=== PATIENT | female | born 1940 | race Caucasian/White ===

== ENCOUNTER → 2023-06-10 11:03 | Outpatient (REF) | payer MEDICARE, OTHER, SELFPAY | LOC: RAD 11:03 | PROVIDERS: ATTENDING PHYSICIAN Family Medicine | DX: M79.604 Pain in right leg (principal); M79.605 Pain in left leg | CPT/HCPCS: 72110; 73523 ==

== ENCOUNTER → 2025-01-18 14:08 | Outpatient (REF) | payer MEDICARE, OTHER, SELFPAY | LOC: CLAB 14:08 | PROVIDERS: ATTENDING PHYSICIAN Specialist | DX: N39.0 Urinary tract infection, site not specified (principal) | CPT/HCPCS: 87086 ==

== ENCOUNTER 2025-02-14 07:21 | Inpatient (IN) | payer MEDICARE, OTHER, SELFPAY ==
--- NOTE | 2025-01-21 13:10 | CM ---
Addendum entered by Joanna Penn RN 01/21/25 13:30:
Mercedes, consulting project director
[phone]
Original Note:
CM spoke with patient who was confused regarding discharge plan. Patient requested that CM call patient 's son Jose. Jose stated that they have made arrangements for respite at [facility] with [facility]. CM advised patient's son
that patient may not be eligible for Personal Care Post operatively and emphasized that physical therapy and occupational therapy will need to clear patient for that level of care. Patient's son stated that Dr. Tanner advised him that patient would
be appropriate for personal care and she would only need two week post operatively.
ERINN spoke with RYANNE Rome at [facility] who advised that patient would have to be recommended post operatively for personal care. If patient was recommended for SNF, then patient would not be accepted to [facility].
ERINN spoke with Mercedes, consulting project director. Mercedes advised this CM that she has primarily been speaking with patient's daughter in a law Dawna to make arrangements for respite. Mercedes advised family that patient may need post Acute care prior to
coming to respite. Mercedes will speak with patient's family to clarify plan.
[2025-01-31 11:38] LABS: Hematocrit 44.0 % (37.0-47.0); Hemoglobin 13.6 g/dL (12.0-16.0); Mean Corp Hgb Conc. 30.9 g/dL (33.0-37.0); Mean Corpuscular Volume 89.8 fL (81.0-99.0); Platelet Count 304 10^3/uL (130-400); Red Cell Dist. Width 15.5 % (11.5-14.5)
[2025-01-31 12:03] LABS: ALT (SGPT) 12 U/L (0-35); AST (SGOT) 21 U/L (14-36); Albumin 4.2 g/dl (3.5-5.0); Alkaline Phosphatase 77 U/L (38-126); Blood Urea Nitrogen 19 mg/dl (7-17); Calcium 9.4 mg/dl (8.4-10.2); Carbon Dioxide 32 mmol/L (22-30); Chloride 101 mmol/L (98-107); Glucose 97 mg/dl (70-99); Potassium 4.2 mmol/L (3.5-5.1); Sodium 138 mmol/L (135-145); Total Protein 6.8 g/dl (6.3-8.2); eGFR > 60.00
[2025-01-31 12:38] LABS: Glycohemoglobin (HgbA1c) 5.9 % (4.0-5.9)
[2025-01-31 14:06] VITALS: BMI 29.2
--- NOTE | 2025-01-31 16:09 | W.PN.UPDATE ---
Update Note
Progress Note Update
White count mildly elevated 11.9-no symptoms-spoke to son-if fever or sx develop, he will contact me.
[2025-02-08 12:14] VITALS: BMI 29.2
--- NOTE | 2025-02-11 10:31 | CM ---
communications project manager reviewed patient's chart and patient is for Right total hip Arthroplasty on 02/14/25, cyanide case hardener reached out to patient's son today to review plan and check to see if paperwork has been completed for [facility], per
patient's son, Jose DME form has been completed and provided to admissions at [facility], patient will also be set up with [facility], back up plan is skilled placement at [facility].
Plan; [facility].
[2025-02-14] VITALS (24 sets, daily range): BP systolic 99–168; BP diastolic 48–96; PULSE 67; O2SAT 97; BMI 29.2
[2025-02-14] MEDS: CELEBREX 200 MG PO (07:27)
[2025-02-14] MEDS: TYLENOL 650 MG PO ×3 (07:29→16:46)
[2025-02-14] MEDS: NORMOSOL-R/PLASMALYTE-A 1000 IV ×2 (07:36→14:57)
--- NOTE | 2025-02-14 08:48 | W.PN.ORTHO ---
Today's Communication / Plan
-
d/c when stable
Assessment
.
Assessment:
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
-Ibuprofen 400mg bid, Gabapentin, Decadron-Tramadol prn
Plan
.
Surgery / Date: R LANDY Dr Tanner 02/14/25
DVT Prophylaxis: Aspirin
Activity:
Out of bed.
PT/OT
Discharge Plan: Rehab ([facility])
Vital Signs and Labs
.
Vital Signs and Labs:
Lab Results
01/31/25 11:17
01/31/25 11:18
Temp Pulse Resp BP Pulse Ox
99.0 F 75 18 134/65 96
02/14/25 07:06 02/14/25 07:06 02/14/25 07:06 02/14/25 07:06 02/14/25 07:06
--- NOTE | 2025-02-14 09:03 | W.DS.TRANS ---
DC Summary - Train Starter
-
Discharge Instructions:
Sleep Apnea Risk Low
Discharge Diagnosis/Procedures R LANDY Dr Tanner 02/14/25
Diet As tolerated
Activity With Walker,With assistance
Additional Activity FALL PRECAUTIONS
Driving Restrictions No driving
Bathing Restrictions OK to Shower
Other Services PT,VN,OT
Instructions:
Stand-Alone Forms: Total Hip/Knee Replacement D/C
Changes to Home Medications: Yes
Discharge Medications:
DC Medications w/original date entered in [place]
famotidine 20 mg tablet 20 mg PO HS Gastrointestinal issue 11/08/08
metoprolol succinate 50 mg tablet,extended release 24 hr 50 mg PO QPM Blood pressure 11/08/08
amlodipine 5 mg tablet 5 mg PO DAILY Blood pressure 11/28/20
levothyroxine 50 mcg tablet 50 mcg PO BID Thyroid 11/28/20
alendronate 70 mg tablet (Fosamax) 70 mg PO QWEEK 01/26/25
fluticasone propionate 100 mcg/actuation blister powder for inhalation 1 inh inhalation BID 01/26/25
multivitamin 1 tab PO DAILY 01/26/25
Held on 02/14/25. Instructions: Resume on 02/22/25.
mupirocin 2 % topical ointment 1 applic topical BID infection prevention #1 tube 01/28/25
dexamethasone 4 mg tablet 4 mg PO BID inflammation #6 tabs 01/31/25
gabapentin 300 mg capsule 300 mg PO HS sleep/pain #10 caps 01/31/25
ondansetron 4 mg disintegrating tablet 4 mg PO Q6H PRN n/v #20 tabs 01/31/25
tramadol 50 mg tablet 50 mg PO Q6H PRN 1 tab moderate pain, 2 if severe #30 tabs 01/31/25
acetaminophen 650 mg tablet,extended release 1,300 mg (2 x 650 mg) PO TID Pain #0 tabs 02/14/25
aspirin 325 mg tablet 325 mg PO DAILY Blood clot prevention/tx #0 tabs 02/14/25
docusate sodium 100 mg capsule (Colace) 100 mg PO BID stool softner #1 cap 02/14/25
ibuprofen 200 mg tablet 400 mg (2 x 200 mg) PO BID Anti-inflammatory #0 tabs 02/14/25
magnesium hydroxide 400 mg/5 mL oral suspension (Milk of Magnesia) 30 ml PO HS PRN constipation #1 mL 02/14/25
sennosides 8.6 mg tablet (Senokot) 17.2 mg (2 x 8.6 mg) PO BID laxative #2 tabs 02/14/25
valsartan 80 mg tablet 160 mg (2 x 80 mg) PO DAILY Blood pressure #0 tabs 02/14/25
Home Medication Changes
mupirocin 2 % topical ointment 1 applic topical BID infection prevention #1 tube 01/28/25
dexamethasone 4 mg tablet 4 mg PO BID inflammation #6 tabs 01/31/25
gabapentin 300 mg capsule 300 mg PO HS sleep/pain #10 caps 01/31/25
ondansetron 4 mg disintegrating tablet 4 mg PO Q6H PRN n/v #20 tabs 01/31/25
tramadol 50 mg tablet 50 mg PO Q6H PRN 1 tab moderate pain, 2 if severe #30 tabs 01/31/25
acetaminophen 650 mg tablet,extended release 1,300 mg (2 x 650 mg) PO TID Pain #0 tabs 02/14/25
aspirin 325 mg tablet 325 mg PO DAILY Blood clot prevention/tx #0 tabs 02/14/25
docusate sodium 100 mg capsule (Colace) 100 mg PO BID stool softner #1 cap 02/14/25
ibuprofen 200 mg tablet 400 mg (2 x 200 mg) PO BID Anti-inflammatory #0 tabs 02/14/25
magnesium hydroxide 400 mg/5 mL oral suspension (Milk of Magnesia) 30 ml PO HS PRN constipation #1 mL 02/14/25
sennosides 8.6 mg tablet (Senokot) 17.2 mg (2 x 8.6 mg) PO BID laxative #2 tabs 02/14/25
valsartan 80 mg tablet 160 mg (2 x 80 mg) PO DAILY Blood pressure #0 tabs 02/14/25
Pending Results: No
[2025-02-14] MEDS: ULTRAM 50 MG PO (12:09)
--- NOTE | 2025-02-14 14:42 | CM ---
Addendum entered by Selena Boucher 02/14/25 15:32:
customer services manager met with patient and family today and they feel patient will be able to go to [facility] assisted living, with [facility], plan is for Avis admissions at [facility] to come and evaluate patient tomorrow, to see if they can accept
patient.
Plan; [place] assisted living with [facility]. Avis from [facility] to come and evaluate patient at [facility].
Original Note:
customer services manager reviewed patient's chart including physical therapy evaluation, and recommendation by physical therapy is for skilled placement, therapeutic case manager spoke with [facility] assisted living and they will only accept if patient has been cleared
for assisted living by physical therapy, therapeutic case manager will reach out to patient's son, Reji regarding skilled options, possibly [facility] or [facility].
Plan; Skilled placement
--- NOTE | 2025-02-14 15:00 | PTCARENOTE ---
Received patient from PACU at 1500. Patient AAOx3, no c/o pain. Patient ambulated to bathroom with walker ans assist x1. Patient voided without difficulty. Family at bedside, bed alarm placed due to patient being forgetful on which button to push
for assistance.
[2025-02-14] MEDS: ASPIRIN 325 MG PO (16:46)
[2025-02-14] MEDS: SYNTHROID 50 MCG PO (16:46)
[2025-02-14] MEDS: ANCEF 5 IV (16:46)
[2025-02-14] MEDS: FLOVENT 44 MCG INHALER 2 PUFF INH (19:22)
[2025-02-14] MEDS: TOPROL XL 25 MG PO (19:55)
[2025-02-14] MEDS: TYLENOL PO (21:00)
[2025-02-14] MEDS: MOTRIN 400 MG PO (21:05)
[2025-02-14] MEDS: SENOKOT PO (21:41)
[2025-02-14] MEDS: COLACE PO (21:41)
[2025-02-14] MEDS: BACTROBAN 2% OINTMENT 1 APPLIC NASAL (21:42)
[2025-02-14] MEDS: DECADRON 4 MG IV (21:42)
[2025-02-14] MEDS: PEPCID 20 MG PO (21:43)
[2025-02-14] MEDS: NEURONTIN 300 MG PO (21:43)
[2025-02-15] VITALS (7 sets, daily range): BP systolic 120–163; BP diastolic 64–83; PULSE 68; O2SAT 95–96
[2025-02-15] MEDS: ANCEF 5 IV
[2025-02-15] MEDS: TYLENOL PO ×2 (00:05→16:00)
[2025-02-15] MEDS: TYLENOL 650 MG PO ×5 (03:48→23:10)
[2025-02-15] MEDS: SYNTHROID 50 MCG PO ×2 (05:10→18:13)
[2025-02-15] MEDS: ULTRAM 25 MG PO (06:27)
[2025-02-15] MEDS: FLOVENT 44 MCG INHALER 2 PUFF INH ×2 (08:01→21:10)
--- NOTE | 2025-02-15 09:03 | CM ---
Addendum entered by Selena Boucher 02/15/25 13:02:
[facility] did not accept patient and plan is for skilled placement, options reviewed and referrals sent to [facility], [facility] and [facility].
Original Note:
Avis in admissions at [facility] to come out today to evaluate patient for Assisted Living, patient's family have agreed to a back up plan, and selected [facility] referral sent to [facility].
Plan; [facility] with [facility], 's [facility].
[2025-02-15] MEDS: COLACE 100 MG PO ×2 (09:57→19:40)
[2025-02-15] MEDS: MOTRIN 400 MG PO ×2 (09:57→19:40)
[2025-02-15] MEDS: NORVASC 5 MG PO (09:57)
[2025-02-15] MEDS: SENOKOT 17.2 MG PO ×2 (10:02→19:40)
[2025-02-15] MEDS: DIOVAN 80 MG PO (10:03)
[2025-02-15] MEDS: ASPIRIN 325 MG PO (10:03)
[2025-02-15] MEDS: BACTROBAN 2% OINTMENT 1 APPLIC NASAL ×2 (10:05→19:40)
[2025-02-15] MEDS: DECADRON 4 MG IV ×2 (10:10→19:40)
--- NOTE | 2025-02-15 12:30 | W.PN.ORTHO ---
Today's Communication / Plan
-
-patient will require short rehab stay prior to returning home at [place] [facility]-d/c when stable
Assessment
.
Distal Motor Intact: Yes
Dressing:
Clean, dry and intact.
Assessment:
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
-Ibuprofen 400mg bid, Gabapentin, Decadron-Tramadol prn
Plan
.
Surgery / Date: R LANDY Dr Tanner 02/14/25
DVT Prophylaxis: Aspirin
Activity:
Out of bed.
PT/OT
Discharge Plan: SNF
Subjective
.
.:
Patient resting comfortably.
Vital Signs and Labs
.
Vital Signs and Labs:
Lab Results
01/31/25 11:17
01/31/25 11:18
Temp Pulse Resp BP Pulse Ox
97.9 F 68 16 129/69 95
02/15/25 11:40 02/15/25 11:40 02/15/25 11:40 02/15/25 11:40 02/15/25 11:40
Non-invasive Hgb result: 13.4
Physical Exam
-
HEENT: No pallor, cyanosis, or jaundice. Throat clear.
NECK: Supple. No JVD.
RESPIRATORY: Lungs clear to auscultation.
CVS: S1, S2 normal. RRR.� No murmur, rub or gallop.
ABDOMEN: Soft, non-tender. No distension. BS+/normal.
EXTREMITIES: strength equal, no calf pain with palpation
FIELD ASSEMBLY SUPERVISOR: AOx3. No focal deficits. quality control head grossly intact
--- NOTE | 2025-02-15 15:37 | PTCARENOTE ---
patient ambulating to bathroom with supervision and walker. patient needs frequent reminders to keep from twisting and sitting before fully on chair. Bed alarm maintained. patient is using call perea appropriately. Daughter at bedside.
[2025-02-15] MEDS: TOPROL XL 25 MG PO (18:12)
[2025-02-15] MEDS: NEURONTIN 300 MG PO (21:35)
[2025-02-15] MEDS: PEPCID 20 MG PO (21:40)
--- NOTE | 2025-02-16 02:52 | PTCARENOTE ---
Pt's bed alarm going off. Pt found to be attempting to get OOB --> wedged between siderails. Assist x2 back into bed. Ambulated w/RW and assist x1 --> BR. Pt verbalizes confusion. Attempted to reorient to situation, reminded to ring for assist
when getting OOB. Call brit w/in reach, bed alarm remains active for safety.
[2025-02-16] MEDS: TYLENOL 650 MG PO ×6 (03:30→23:12)
[2025-02-16] MEDS: SYNTHROID 50 MCG PO ×2 (05:20→17:53)
[2025-02-16 08:00] VITALS: BP 124/64
[2025-02-16] MEDS: FLOVENT 44 MCG INHALER 2 PUFF INH ×2 (08:18→19:12)
--- NOTE | 2025-02-16 08:38 | CM ---
Patient has been accepted at [facility] tomorrow, will need ambulance transport to [facility], plan is skilled then transition to [facility] with [facility].
[facility]
Report [phone]
[2025-02-16 09:12] VITALS: BP 159/93; PULSE 75; O2SAT 96
--- NOTE | 2025-02-16 09:44 | W.PN.ORTHO ---
Today's Communication / Plan
-
Await head CT and UA w/ culture results.
Minimize opioids as able.
Work w/ PT and OT as able.
Possible d/c tomorrow to SNF pending clinical stability.
Assessment
.
Distal Motor Intact: Yes
Dressing:
Small areas of old bleeding along incision line.
Assessment:
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
DVT prophylaxis - ASA, b/l venous foot pumps
Post-op confusion - possibly anesthesia vs opioid induced
- Minimize opioids as able
- Appears neurologically intact this AM; however, not able to recall events of yesterday. Will order head CT to r/o neurological event out of caution
- Given reported urinary frequency today per RN, will order UA w/ culture
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
- Ibuprofen 400mg bid, Gabapentin, Decadron, Tramadol prn
- Pain reportedly well managed w/ regimen above
Plan
.
Surgery / Date: Daniel BILL w/ Dr Tanner 02/14/25
DVT Prophylaxis: Aspirin
Activity:
Out of bed.
PT/OT
Discharge Plan: SNF
Subjective
.
.:
Patient resting comfortably in her chair.
Denies R hip pain at present.
Pt reports confusion yesterday into early today. Appears neurologically intact.
RN reporting urinary frequency this AM.
Vital Signs and Labs
.
Vital Signs and Labs:
Lab Results
01/31/25 11:17
01/31/25 11:18
Temp Pulse Resp BP Pulse Ox
97.9 F 67 16 124/64 95
02/16/25 08:00 02/16/25 08:20 02/16/25 08:20 02/16/25 08:00 02/16/25 08:20
Non-invasive Hgb result: 16.0
Physical Exam
-
HEENT: No pallor, cyanosis, or jaundice. Throat clear.
NECK: Supple. No JVD.
RESPIRATORY: Lungs clear to auscultation.
CVS: S1, S2 normal. RRR.�
ABDOMEN: Soft, non-tender. No distension.
EXTREMITIES: Strength equal, no calf pain with palpation/dorsiflexion. Calves soft.
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 No focal deficits. sales representative raw fibers grossly intact
[2025-02-16] MEDS: SENOKOT 17.2 MG PO (09:49)
[2025-02-16] MEDS: DIOVAN PO (09:49)
[2025-02-16] MEDS: ASPIRIN 325 MG PO (09:50)
[2025-02-16] MEDS: COLACE 100 MG PO (09:50)
[2025-02-16] MEDS: NORVASC PO (09:50)
[2025-02-16] MEDS: MOTRIN 400 MG PO ×2 (09:50→21:09)
[2025-02-16] MEDS: DECADRON 4 MG PO ×2 (09:50→21:09)
[2025-02-16 15:45] VITALS: BP 143/78
--- NOTE | 2025-02-16 15:45 | W.PN.UPDATE ---
Update Note
Progress Note Update
Head CT w/o acute abnormalities.
UA w/ culture still pending. Will look for results.
Per RN, cognition improved greatly compared to prior reports.
Suspect anesthesia and opioid pain meds are to blame.
Opioid pain meds reduced to avoid further cognitive declines.
[2025-02-16 16:41] LABS: Urine Character Slightly Cloudy (Clear)
[2025-02-16 17:07] LABS: Urine Red Blood Cell 0-2 /HPF (0-2); Urine Squamous Cell 26-30 /LPF (Few); Urine White Cell 0-2 /HPF (0-5)
[2025-02-16] MEDS: TOPROL XL 25 MG PO (18:41)
[2025-02-16] MEDS: COLACE PO (21:09)
[2025-02-16] MEDS: NEURONTIN 300 MG PO (21:10)
[2025-02-16] MEDS: PEPCID 20 MG PO (21:10)
[2025-02-16 23:09] VITALS: BP 145/80
[2025-02-17] MEDS: TYLENOL PO (03:10)
[2025-02-17] MEDS: SYNTHROID 50 MCG PO (05:13)
[2025-02-17 07:50] VITALS: BP 184/90
[2025-02-17] MEDS: FLOVENT 44 MCG INHALER 2 PUFF INH (08:09)
--- NOTE | 2025-02-17 08:50 | CM ---
Patient has a bed today at [facility], needs ambulance transport to facility.
Plan; Skilled placement at [facility]
Report [phone]
[2025-02-17] MEDS: TYLENOL 650 MG PO ×2 (09:01→13:00)
[2025-02-17] MEDS: NORVASC 5 MG PO (09:01)
[2025-02-17] MEDS: MOTRIN 400 MG PO (09:01)
[2025-02-17] MEDS: DECADRON 4 MG PO (09:01)
[2025-02-17] MEDS: DIOVAN 80 MG PO (09:02)
[2025-02-17] MEDS: COLACE PO (09:02)
[2025-02-17] MEDS: ASPIRIN 325 MG PO (09:02)
--- NOTE | 2025-02-17 12:23 | W.PN.ORTHO ---
Addendum entered and electronically signed by Lesley Guzman PA-C 02/21/25 13:58:
Acute p/o delirium POD#2
Original Note:
Today's Communication / Plan
-
d/c
Assessment
.
Distal Motor Intact: Yes
Dressing:
Clean, dry and intact.
Assessment:
Post-op confusion POD#2
- opioids were minimized--patient describes it at amnesia and states family said her cognitive status was at her baseline
- head CT ordered negative for acute event-dermatology procedural physician 2-12 intact-u/a negative
- anesthesia/ opioid induced
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
- Ibuprofen 400mg bid, Gabapentin, Decadron, Tramadol prn
- Pain reportedly well managed w/ regimen above
Plan
.
Surgery / Date: R LANDY w/ Dr Tanner 02/14/25
DVT Prophylaxis: Aspirin
Activity:
Out of bed.
PT/OT
Discharge Plan: SNF
Subjective
.
.:
Patient resting comfortably.
Vital Signs and Labs
.
Vital Signs and Labs:
Lab Results
01/31/25 11:17
01/31/25 11:18
Temp Pulse Resp BP Pulse Ox
98.1 F 79 16 173/87 94
02/17/25 07:50 02/17/25 09:01 02/17/25 08:11 02/17/25 09:01 02/17/25 08:11
Non-invasive Hgb result: 12.3
Physical Exam
-
HEENT: No pallor, cyanosis, or jaundice. Throat clear.
NECK: Supple. No JVD.
RESPIRATORY: Lungs clear to auscultation.
CVS: S1, S2 normal. RRR.� No murmur, rub or gallop.
ABDOMEN: Soft, non-tender. No distension. BS+/normal.
EXTREMITIES: strength equal, no calf pain with palpation
DSP ENGINEER: AOx3. No focal deficits. dermatology procedural physician grossly intact
[2025-02-17 12:28] VITALS: BP 113/61
[2025-02-17 16:00] VITALS: BP 167/88
--- NOTE | 2025-02-18 15:33 | PN.CDI ---
CDI
- -
CDI:
Physician Documentation Request
Admit Date: 02/14/25 07:21
Dear Doctor,
Patient admitted for total hip arthroplasty.
02/16 PCN: 'Pt's bed alarm going off. Pt found to be attempting to get OOB --> wedged between siderails...Pt verbalizes confusion. Attempted to reorient to situation'
02/16 Update Note: 'Head CT w/o acute abnormalities. UA w/ culture still pending...Suspect anesthesia and opioid pain meds are to blame. Opioid pain meds reduced to avoid further cognitive declines.'
02/17 Orthopedics PN: 'Post-op confusion POD#2
- opioids were minimized--patient describes it at amnesia and states family said her cognitive status was at her baseline
- head CT ordered negative for acute event-woods superintendent 2-12 intact-u/a negative
- anesthesia/ opioid induced'
Based on the above, could you clarify in the Progress Notes and Discharge Summary which, if any of the following, is the most likely etiology of the confusion/altered mental status.
Toxic metabolic encephalopathy
Acute post-operative delirium
Other
Use of terms such as suspected, likely, concern for, or probable (associated with a specific diagnosis that is being evaluated, monitored, or treated as if it exists) are acceptable and can be coded in the inpatient setting, when documented at the
time of discharge.
Thank you,
Monica Mahan RN, BSN
CDI Specialist
Available via [facility] text
Please use your independent medical judgment in providing your response.
== END 2025-02-17 16:30 | DRG 470 ==
LOC: 2 SOUTH 07:21
PROVIDERS: Physician Assistant; ADMITTING PHYSICIAN Specialist; FAMILY PHYSICIAN Family Medicine
PROC: 0SR9019 Replacement of Right Hip Joint with Metal Synthetic Substitute, Cemented, Open Approach (ICD-10-PCS; 2025-02-14)
DX: M16.11 Unilateral primary osteoarthritis, right hip (principal); I51.81 Takotsubo syndrome; N18.9 Chronic kidney disease, unspecified; I12.9 Hypertensive chronic kidney disease with stage 1 through stage 4 chronic kidney disease, or unspecified chronic kidney disease; E03.9 Hypothyroidism, unspecified; J45.909 Unspecified asthma, uncomplicated; K21.9 Gastro-esophageal reflux disease without esophagitis; M81.0 Age-related osteoporosis without current pathological fracture
CPT/HCPCS: 36415; 70450; 73502; 80053; 81003; 81015; 83036; 85027; 87070; 94640; 97110; 97116; 97163; 97167; 97530; 97535; C1713; C1776

== ENCOUNTER → 2025-03-02 10:44 | Outpatient (REF) | payer OTHER, MEDICARE, SELFPAY ==
[2025-03-02 11:17] LABS: Hematocrit 31.5 % (37.0-47.0); Hemoglobin 9.8 g/dL (12.0-16.0); Mean Corp Hgb Conc. 31.1 g/dL (33.0-37.0); Mean Corpuscular Volume 91.3 fL (81.0-99.0); Nucleated Red Blood Cells % 0 %; Platelet Count 299 10^3/uL (130-400); Red Cell Dist. Width 17.8 % (11.5-14.5)
[2025-03-02 11:56] LABS: ALT (SGPT) 14 U/L (0-35); AST (SGOT) 20 U/L (14-36); Albumin 3.1 g/dl (3.5-5.0); Alkaline Phosphatase 65 U/L (38-126); Blood Urea Nitrogen 30 mg/dl (7-17); Calcium 8.3 mg/dl (8.4-10.2); Carbon Dioxide 25 mmol/L (22-30); Chloride 107 mmol/L (98-107); Glucose 86 mg/dl (70-99); Magnesium 2.5 mg/dl (1.6-2.3); Potassium 4.2 mmol/L (3.5-5.1); Sodium 135 mmol/L (135-145); Total Protein 5.2 g/dl (6.3-8.2); eGFR > 60.00
== END ==
LOC: OLABWHC 10:44
PROVIDERS: ATTENDING PHYSICIAN Family Medicine
DX: Z96.60 Presence of unspecified orthopedic joint implant (principal)
CPT/HCPCS: 36415; 80053; 83735; 85025